=== PATIENT | female | born 1960 | race Caucasian/White ===

== ENCOUNTER 2022-10-07 06:46 | Day surgery (SDC) | payer OTHER ==
[~2022-10-07] VITALS: Ht 172.7 cm; Wt 157.4 kg
[2022-10-07] MEDS ORDERED: MEPERIDINE 50 MG/ML VIAL ONE ×2 (06:59→07:27)
[2022-10-07] MEDS ORDERED: MIDAZOLAM HCL 5 MG/5 ML VIAL ONE ×2 (06:59→07:27)
[2022-10-07] MEDS ORDERED: SIMETHICONE 40 MG/0.6 ML ML ONE (07:27)
[2022-10-07 14:08] VITALS: BP_SYST 130
== END 2022-10-07 11:48 | disposition home or self-care (01) ==
LOC: SDS 06:46 → SMU 06:48 → SDS 11:48
PROVIDERS: ATTEND Internal Medicine Gastroenterology
DX: E66.01 Morbid (severe) obesity due to excess calories (principal); K29.50 Unspecified chronic gastritis without bleeding; Z68.43 Body mass index [BMI] 50.0-59.9, adult; K21.9 Gastro-esophageal reflux disease without esophagitis; K29.80 Duodenitis without bleeding; Z79.899 Other long term (current) drug therapy; Z20.822 Contact with and (suspected) exposure to COVID-19
CPT/HCPCS: 43239; 87426; 87081; 36415; 88305; 88312; 88313; 99152; G0378; J2250; J2175